=== PATIENT | male | born 1965 | race Caucasian/White ===

== ENCOUNTER → 2023-08-19 14:21 | Outpatient (REF) | payer OTHER, SELFPAY | LOC: DHSLP 14:21 | PROVIDERS: ATTENDING PHYSICIAN Internal Medicine Critical Care Medicine; FAMILY PHYSICIAN Internal Medicine | DX: G47.33 Obstructive sleep apnea (adult) (pediatric) (principal) | CPT/HCPCS: 95800 ==

== ENCOUNTER → 2024-06-25 10:28 | Outpatient (REF) | payer BC, SELFPAY | LOC: RAD 10:28 | PROVIDERS: ATTENDING PHYSICIAN Specialist; FAMILY PHYSICIAN Internal Medicine | DX: S05.50XA Penetrating wound with foreign body of unspecified eyeball, initial encounter (principal) | CPT/HCPCS: 70030 ==

== ENCOUNTER 2024-08-20 06:16 | Day surgery (SDC) | payer BC, SELFPAY ==
[2024-08-11 09:14] LABS: Hematocrit 44.9 % (39.0-52.0); Hemoglobin 16.1 g/dL (13.0-18.0); Mean Corp Hgb Conc. 35.9 g/dL (33.0-37.0); Mean Corpuscular Volume 86.3 fL (80.0-94.0); Mean Platelet Volume 10.5 fL (7.4-10.4); Platelet Count 226 10^3/uL (130-400); Red Cell Dist. Width 12.8 % (11.5-14.5); White Blood Cell Count 8.1 10^3/uL (4.8-10.8)
[2024-08-11 09:29] LABS: Blood Urea Nitrogen 25 mg/dl (9-20); Calcium 9.6 mg/dl (8.4-10.2); Carbon Dioxide 24 mmol/L (22-30); Chloride 106 mmol/L (98-107); Glucose 117 mg/dl (70-99); Potassium 3.9 mmol/L (3.5-5.1); Sodium 138 mmol/L (135-145); eGFR > 60.00
[2024-08-11 13:40] VITALS: BMI 38.2
[2024-08-20] VITALS (10 sets, daily range): BP systolic 123–201; BP diastolic 49–98; BMI 38.2
[2024-08-20 08:27] LABS: Glucose - Point of Care 134 mg/dl (70-99)
[2024-08-20] MEDS: CELEBREX 200 MG PO (08:37)
[2024-08-20] MEDS: TYLENOL 1000 MG PO (08:37)
[2024-08-20] MEDS: NORMOSOL-R/PLASMALYTE-A 1000 IV (08:39)
== END 2024-08-20 12:42 | disposition home or self-care (01) ==
LOC: SDS 06:16
PROVIDERS: ATTENDING PHYSICIAN Specialist; FAMILY PHYSICIAN Internal Medicine
DX: M75.122 Complete rotator cuff tear or rupture of left shoulder, not specified as traumatic (principal); M75.41 Impingement syndrome of right shoulder
CPT/HCPCS: 29822; 29828; C9781; C1713; 36415; 80048; 82962; 85027; 93005

== ENCOUNTER → 2024-09-16 13:08 | Outpatient (REF) | payer BC, SELFPAY | LOC: RAD 13:08 | PROVIDERS: ATTENDING PHYSICIAN Internal Medicine | DX: R22.42 Localized swelling, mass and lump, left lower limb (principal) | CPT/HCPCS: 93971 ==